=== PATIENT | female | born 1995 | race American Indian/Alaskan Native ===

== ENCOUNTER 2017-10-01 07:50 | Emergency (ER) | payer OTHER ==
[2017-10-01 08:05] VITALS: BP 165/94
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
== END 2017-10-01 09:11 | disposition home or self-care (01) ==
LOC: ED 07:50
DX: M79.1 Myalgia (principal); M25.511 Pain in right shoulder; M25.512 Pain in left shoulder; M54.5 Low back pain; I10 Essential (primary) hypertension
CPT/HCPCS: 99283